=== PATIENT | male | born 1990 | race Caucasian/White ===

== ENCOUNTER 2017-06-02 05:04 | Emergency (ER) | payer SELFPAY | END 2017-06-02 06:42 | disposition home or self-care (01) | LOC: ERS 05:04 | DX: K08.89 Other specified disorders of teeth and supporting structures (principal); J45.909 Unspecified asthma, uncomplicated; F17.210 Nicotine dependence, cigarettes, uncomplicated; F41.9 Anxiety disorder, unspecified; F90.9 Attention-deficit hyperactivity disorder, unspecified type; Z71.6 Tobacco abuse counseling | CPT/HCPCS: 99406 ==

== ENCOUNTER 2017-11-02 22:11 | Emergency (ER) | payer SELFPAY ==
[2017-11-02] MEDS ORDERED: Ibuprofen 800 MG TAB ONE (22:26)
--- NOTE | 2017-11-02 22:58 | RAD ---
FOUR VIEWS LEFT KNEE: 11/02/17 HISTORY: Pain. COMPARISON: None. FINDINGS: No joint effusion. No fracture. No malalignment. Joint spaces are preserved. IMPRESSION: Unremarkable left knee four views. POS: [facility]
== END 2017-11-02 23:18 | disposition home or self-care (01) ==
LOC: ERS 22:11
DX: M25.562 Pain in left knee (principal); M25.561 Pain in right knee; J45.909 Unspecified asthma, uncomplicated; F41.9 Anxiety disorder, unspecified; F90.9 Attention-deficit hyperactivity disorder, unspecified type; F17.210 Nicotine dependence, cigarettes, uncomplicated; Z71.6 Tobacco abuse counseling
CPT/HCPCS: 99406

== ENCOUNTER 2018-05-08 13:43 | Emergency (ER) | payer SELFPAY ==
[2018-05-08] MEDS ORDERED: Ketorolac Tromethamine 30 MG/ML VIAL ONE (15:13)
[2018-05-08] MEDS ORDERED: HYDROcodone/Acetaminophen 10/325 mg Tablet ONE (15:59)
--- NOTE | 2018-05-08 16:00 | RAD ---
SINGLE VIEW CHEST: Date: 05/08/18 COMPARISON: None. HISTORY: Mid back pain for 3 days. FINDINGS: Single view of the chest shows a normal sized cardiomediastinal silhouette. There is no evidence of c onsolidation, mass, or pleural effusion. A round, radiopaque structure projecting over the right ches t wall may represent a BB. IMPRESSION: No evidence of acute cardiopulmonary disease. POS: [facility]
--- NOTE | 2018-05-08 16:02 | RAD ---
3 VIEWS THORACIC SPINE: Date: 05/08/18 COMPARISON: None. HISTORY: Mid back pain. FINDINGS: Three views of the thoracic spine show normal height and alignment of the vertebral bodies and interv ertebral discs without fracture or subluxation. No significant degenerative changes are seen. A radio paque round object projecting over the right chest wall may represent a BB. IMPRESSION: No significant acute abnormality of the thoracic spine. POS: [facility]
== END 2018-05-08 16:06 | disposition home or self-care (01) ==
LOC: ERS 13:43
DX: S29.012A Strain of muscle and tendon of back wall of thorax, initial encounter (principal); J45.909 Unspecified asthma, uncomplicated; F17.210 Nicotine dependence, cigarettes, uncomplicated; F90.9 Attention-deficit hyperactivity disorder, unspecified type; F41.9 Anxiety disorder, unspecified; Z71.6 Tobacco abuse counseling; X50.9XXA Other and unspecified overexertion or strenuous movements or postures, initial encounter
CPT/HCPCS: 71045; 72072; 96372; 99406; J1885

== ENCOUNTER 2018-10-30 10:36 | Emergency (ER) | payer SELFPAY ==
--- NOTE | 2018-10-30 10:57 | RAD ---
XR Humerus Lt 2 View STANDARD History: [Pain] Comparison: None. Findings: No acute fracture or malalignment. Anterior plate-screw fixation hardware at distal humerus fracture which is healed. No evidence for hardware complication. No backing out of the screws. Soft tissues are unremarkable. Impression: No acute abnormality.
== END 2018-10-30 11:30 | disposition home or self-care (01) ==
LOC: ERS 10:36
DX: M79.602 Pain in left arm (principal); J45.909 Unspecified asthma, uncomplicated; F90.9 Attention-deficit hyperactivity disorder, unspecified type; F41.9 Anxiety disorder, unspecified; F17.210 Nicotine dependence, cigarettes, uncomplicated

== ENCOUNTER 2019-06-02 20:17 | Emergency (ER) | payer SELFPAY ==
[2019-06-02 21:19] LABS: #Basophils 0.1 thou/uL (0.0-0.2); #Eosinphils 0.1 thou/uL (0.0-0.7); #Lymphocytes 3.2 thou/uL (1.20-3.40); #Monocytes 0.8 thou/uL (0.11-0.59); #Neutrophils 6.3 thou/uL (1.40-6.50); %Basophils 0.7 % (0.0-1.0); %Eosinophils 0.9 % (0.0-10.0); %Lymphocytes 30.6 % (21.0-51.0); %Monocytes 7.2 % (0.0-10.0); %Neutrophils 60.6 % (42.0-75.0); Hemoglobin 15.1 g/dL (14.0-18.0); Mean Corpuscular HGB CONC 33.7 g/dL (32.0-36.0); Mean Corpuscular Hemoglobin 31.2 pg (27.0-31.0); Mean Corpuscular Volume 92.7 fL (78.0-98.0); Platelet Count 166 thou/uL (130-400); RBC Distribution Width 11.7 % (11.5-14.5); Red Blood Cell (RBC) Count 4.84 mill/uL (4.70-6.10); White Blood Cell (WBC) Count 10.5 thou/uL (4.8-10.8)
[2019-06-02 21:23] LABS: Bilirubin Negative (Negative); Blood, Urine Negative (Negative); Clarity Clear (Clear); Glucose, Urine (Dipstick) Normal (Negative); Leukocyte Negative Leu/uL (Negative); Nitrite Negative (Negative); Protein, Urine (Dipstick) Negative (Neg-Trace); Urobilinogen Normal mg/dL (Less than 2)
[2019-06-02 21:39] LABS: ALT (SGPT) 47 U/L (8-55); AST (SGOT) 29 U/L (5-34); Albumin 3.9 g/dL (3.5-5.0); Alkaline Phosphatase 77 U/L (40-110); Anion Gap 11 mmol/L (10-20); BUN (Urea Nitrogen) 11 mg/dL (8.9-20.6); Bilirubin, Total 0.4 mg/dL (0.2-1.2); Calc. Creatinine Clearance 0 mL/min (70-130); Calcium 8.5 mg/dL (7.8-10.44); Carbon Dioxide 28 mmol/L (22-29); Chloride 105 mmol/L (98-107); Estimated GFR-MDRD Greater than 90; Globulin 2.6 g/dL (2.4-3.5); Glucose 78 mg/dL (70-105); Lipase 15 U/L (8-78); Potassium 3.9 mmol/L (3.5-5.1); Protein, Total 6.5 g/dL (6.0-8.3); Sodium 140 mmol/L (136-145)
--- NOTE | 2019-06-02 21:46 | CT ---
CT ABDOMEN AND PELVIS PERFORMED WITHOUT CONTRAST ENHANCEMENT: Date: 06/02/2019 HISTORY: Abdominal pain. FINDINGS: There is a small focus of pneumonitis change in the left lower lobe. This is only partially visualize d on the uppermost slice. The liver and spleen show no focal abnormalities. Pancreas and gallbladder regions are unremarkable. Right and left adrenal glands, and right and left kidneys are normal in size. There is no significant periaortic or mesenteric adenopathy. The appendix is normal in appearance. CT of pelvis was performed with contrast enhancement. Minimal sigmoid diverticulosis is noted. No светлана nopathy, mass, or free fluid. IMPRESSION: 1. Tiny focus of pneumonitis change in the left lower lobe. 2. Minimal diverticulosis. POS: [facility]
[2019-06-02] MEDS ORDERED: Ondansetron PF 4 MG/2 ML Vial ONE (22:10)
[2019-06-02] MEDS ORDERED: Morphine 4 MG/ML VIAL ONE (22:10)
[2019-06-02] MEDS ORDERED: Ketorolac Tromethamine 30 MG/ML VIAL ONE (23:19)
== END 2019-06-02 23:20 | disposition home or self-care (01) ==
LOC: ERS 20:17
DX: M62.838 Other muscle spasm (principal); J18.9 Pneumonia, unspecified organism; J45.909 Unspecified asthma, uncomplicated; F41.9 Anxiety disorder, unspecified; F17.210 Nicotine dependence, cigarettes, uncomplicated; X50.1XXA Overexertion from prolonged static or awkward postures, initial encounter
CPT/HCPCS: 36415; 74176; 80053; 81003; 83690; 85025; 96361; 96374; 96375; J1885; J2270; J2405

== ENCOUNTER 2020-03-21 23:26 | Emergency (ER) | payer OTHER, SELFPAY ==
[2020-03-22 11:42] LABS: SARS-CoV-2 MS2 Positive; SARS-CoV-2 N Gene Negative; SARS-CoV-2 S Gene Negative; SARS-CoV-2 by NAA Not Detected (NotDetected); SARS-CoV-2 orf1ab Negative
== END 2020-03-22 00:35 | disposition home or self-care (01) ==
LOC: ERS 23:26
DX: J20.9 Acute bronchitis, unspecified (principal); Z20.828 Contact with and (suspected) exposure to other viral communicable diseases; F90.9 Attention-deficit hyperactivity disorder, unspecified type; F41.9 Anxiety disorder, unspecified; F17.210 Nicotine dependence, cigarettes, uncomplicated
CPT/HCPCS: 87635; 99283; U0003